=== PATIENT | male | born 1970 | race Caucasian/White ===

== ENCOUNTER 2020-05-02 12:15 | Outpatient (CLI) | payer OTHER, SELFPAY ==
--- NOTE | 2020-05-02 12:23 | CT_ITS ---
WS: [id number] CT ABDOMEN PELVIS TECHNIQUE: Contrast-enhanced CT of the abdomen and pelvis with coronal and sagittal reformatted image s. CLINICAL INFORMATION: EPIGASTRIC PAIN COMPARISON: December 10, 2018 DLP: 1292.[address] scans at [facility] use at least one of these dose optimization techniques: automat ed exposure control; mA and/or kV adjustment per patient size (includes targeted exams where dose is matched to clinical indication); or iterative reconstruction. FINDINGS: Diffuse fatty infiltration of the liver. Cholecystectomy clips. Normal spleen. Normal GE junction. [place] ng bases are well aerated. Normal pancreas. Adrenal glands are normal. Normal renal parenchymal enhan cement. No hydronephrosis. Normal caliber abdominal aorta. Sigmoid diverticulosis. No evidence of acu te diverticulitis. No evidence of small or large bowel obstruction. Normal appendix. No free fluid in the pelvis. No per iaortic lymphadenopathy. No inguinal lymphadenopathy. Small fat-containing left pericentral epigastri c hernia. No herniated bowel. Slight anterolisthesis L5 on S1 with chronic spondylolysis. CT/CT abdomen pelvis w con* [id number] IMPRESSION: IMPRESSION: 1. Diffuse fatty infiltration of the liver. 2. Cholecystectomy clips. 3. Left pericentral epigastric hernia containing omental fat. No herniated bow el. 4. No abdominal or pelvic lymphadenopathy. 5. Stable grade 1 anterolisthesis L5 on S1 with bilateral spondylolysis.
[2020-05-02] MEDS: iohexol 300 mg/mL 100 mL Btl IV (12:53)
[2020-05-02] MEDS: iohexol 300 mg/mL 50 mL Btl PO (12:53)
== END 2020-05-02 12:16 | disposition home or self-care (01) ==
LOC: RADWPI 12:20
PROVIDERS: PCP Family Medicine; Visit Provider Family Medicine
DX: R10.13 Epigastric pain (principal); K76.0 Fatty (change of) liver, not elsewhere classified; K43.9 Ventral hernia without obstruction or gangrene; M47.816 Spondylosis without myelopathy or radiculopathy, lumbar region
CPT/HCPCS: 74177; Q9967

== ENCOUNTER → 2020-09-14 14:46 | Outpatient (BNVA) | payer OTHER, SELFPAY | PROVIDERS: PCP Family Medicine; Visit Provider Internal Medicine | DX: E11.42 Type 2 diabetes mellitus with diabetic polyneuropathy (principal); E11.65 Type 2 diabetes mellitus with hyperglycemia; E78.2 Mixed hyperlipidemia; I10 Essential (primary) hypertension | CPT/HCPCS: 99204 ==

== ENCOUNTER → 2021-01-11 15:36 | Outpatient (BNVA) | payer SELFPAY | PROVIDERS: PCP Family Medicine; Visit Provider Internal Medicine | DX: E11.42 Type 2 diabetes mellitus with diabetic polyneuropathy (principal); E11.65 Type 2 diabetes mellitus with hyperglycemia; E66.9 Obesity, unspecified; E78.2 Mixed hyperlipidemia; I10 Essential (primary) hypertension | CPT/HCPCS: 99215 ==

== ENCOUNTER 2022-01-31 08:26 | Outpatient (CLI) | payer OTHER, SELFPAY ==
[2022-01-31 12:23] LABS: Estmated Average Glucose 169; Hemoglobin A1C 7.5 % (4.0-6.0)
== END 2022-01-31 08:27 | disposition home or self-care (01) ==
LOC: ONCMED 08:26
PROVIDERS: PCP Family Medicine; Visit Provider Internal Medicine
DX: E11.65 Type 2 diabetes mellitus with hyperglycemia (principal); E78.2 Mixed hyperlipidemia; I10 Essential (primary) hypertension; E11.42 Type 2 diabetes mellitus with diabetic polyneuropathy; E66.9 Obesity, unspecified
CPT/HCPCS: 36415; 83036

== ENCOUNTER 2023-01-14 15:25 | Outpatient (CLI) | payer OTHER, SELFPAY ==
--- NOTE | 2023-01-14 15:42 | XRR_ITS ---
PROCEDURE INFORMATION: Exam: XR Left Shoulder Exam date and time: 01/14/2023 3:43 PM Age: 52 years old Clinical indication: Pain and injury or trauma; Fall; Blunt trauma (contusions or hematomas); Left; Injury date: 11/05/2022; Patient HX: Lt shoulder pain, PT fell nov 05, 2022; Additional info: Persistant left shoulder pain S/P trauma 9 wks prior to visi TECHNIQUE: Imaging protocol: Radiologic exam of the left shoulder. Views: 2 or more views. COMPARISON: CR XR chest 2V* [id number] 10/25/2021 9:23 AM FINDINGS: Bones/joints: No fracture or dislocation is seen about the left shoulder. Mild degenerative change of the left AC joint, which appears maintained. Osseous structures show no significant abnormality. No abnormal soft tissue calcification is seen about the shoulder joint. Soft tissues: See Bones/joints finding. XR/XR shoulder LT min 2V* [id number] IMPRESSION: Mild degenerative change left AC joint. No fracture or significant osseous abnormality.
== END 2023-01-14 15:26 | disposition home or self-care (01) ==
PROVIDERS: Visit Provider Family Medicine
DX: M75.112 Incomplete rotator cuff tear or rupture of left shoulder, not specified as traumatic (principal); M25.512 Pain in left shoulder
CPT/HCPCS: 73030

== ENCOUNTER 2023-02-11 06:00 | Outpatient (RCR) | payer OTHER, SELFPAY | END 2023-03-09 23:59 | disposition home or self-care (01) | LOC: SPT 06:00 | PROVIDERS: Visit Provider Family Medicine | DX: M75.112 Incomplete rotator cuff tear or rupture of left shoulder, not specified as traumatic (principal) | CPT/HCPCS: 97110; 97161 ==

== ENCOUNTER 2023-04-23 15:15 | Oncology outpatient (recurring) (ONCR) | payer OTHER, SELFPAY ==
[2023-04-23 15:45] LABS: Alanine Aminotransferase 53 U/L (0-41); Albumin Level 4.5 g/dL (3.5-5.2); Alkaline Phosphatase 100 U/L (40-130); Anion Gap 17.1 (5-19); Aspartate Amino Transferase 49 U/L (0-40); Blood Urea Nitrogen 11 mg/dL (6-20); Calcium 8.8 mg/dL (8.5-10.5); Carbon Dioxide 24 mmol/L (22-29); Chloride 101 mmol/L (98-107); Cholesterol 160 mg/dL (0-200); Globulin 2.8 g/dL (1.3-4.6); Glucose 133 mg/dL (65-115); HDL Cholesterol 47 mg/dL (60-100); Osmolality Calculated 287 mOsm/kg (285-295); Potassium 4.1 mmol/L (3.5-5.1); Sodium 138 mmol/L (136-145); Total Bilirubin 0.7 mg/dL (0.15-1.2); Total Protein 7.3 g/dL (6.6-8.7); Triglycerides 412 mg/dL (0-150)
[2023-04-23 15:58] LABS: Creatinine Urine, Random 352 mg/dL (39-259); Microalbum Creatinine Ratio Ur 3 mg/dL (0-20); Microalbumin Random Urine 1 ug/dL (0-20)
[2023-04-23 16:25] LABS: Estmated Average Glucose 197; Hemoglobin A1C 8.5 % (4.0-6.0)
[2023-04-23 16:45] LABS: LDL Cholesterol Direct 46 mg/dL (0-100)
== END 2023-05-09 23:59 | disposition home or self-care (01) ==
PROVIDERS: Internal Medicine; PCP Family Medicine; Visit Provider Internal Medicine
DX: E11.65 Type 2 diabetes mellitus with hyperglycemia (principal)
CPT/HCPCS: 36415; 80053; 80061; 82044; 83036; 83721

== ENCOUNTER 2023-10-29 08:33 | Outpatient (CLI) | payer OTHER, SELFPAY ==
--- NOTE | 2023-10-29 | ECG_ITS ---
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 Interpretive Statements NAME OF STUDY: Exercise/sestamibi/sestamibi stress test INDICATION: Chest Pain PROCEDURE: The baseline electrocardiogram showed normal sinus rhythm with normal ST-Ts. At the baseline, the patient's blood pressure was 143/84 mm Hg with a heart rate of 81. The patient exercised for 7 minutes and 31 seconds on a standard Spencer protocol. Patient attained a maximum heart rate of 169 beats per minute(100% of the maximum predicted heart rate) with a blood pressure at the peak exercise of 166/91 mm Hg. The EKG at the peak exercise revealed no significant changes. Patient did not have any chest pain or any significant arrhythmis with the exercise Sestamibi was injected 1 minute prior to the peak exercise During the recovery phase, there were no new changes. Blood pressure at the end of the recovery phase was 127/80 mm Hg with a heart rate of 109 per minute. CONCLUSION: 1. No significant EKG changes with the EKG response to [treadmill exercise 2. No exercise-induced chest pain or cardiac arrhythmia 3. Fair exercise tolerance, attained a maximum of 10.2 METs 4. Sestamibi/Sestamibi perfusion results pending; see separate report. Electronically Signed On 11-10-2023 17:02:50 GERMAN TUTOR by Fernanda Ahmadi M.D. [id number]
[2023-10-29 08:38] VITALS: BMI 33.2
--- NOTE | 2023-10-29 08:44 | NMCV_ITS ---
NM jorge perf SPECT r/s* [id number] MahoneyNadeem staley Age: 53 Gender: M : 1970 Exam Date: 10/29/2023 08:44 Ordering Phys: Jesus Locke MD Technologist: CATRACHITO Torrez Exam Location: [facility] Indications: CHEST PAIN STRESS TEST Please see separate stress test report in [facility] for full findings IMAGE PROTOCOL Rest/Stress 1 Exercise Day Radiopharmaceutical Dose (mCi) Administration Site Administered by Rest: Tc-99m 10.9 IV CATRACHITO Forrest Sestamibi Stress:Tc-99m 32.8 IV CATRACHITO Forrest Sestamibi Rest: 29-Oct-2023 60 Discovery 630 Stress: 29-Oct-2023 15 Discovery 630 Radiopharmaceutical was injected at 92 % maximum heart rate. Images obtained in supine and prone position. SPECT RESULTS Technical Quality: Excellent Raw Data Analysis: Normal Image Corrections: No attenuation or motion correction applied Summed Stress Score: 0 Summed Rest Score: 1 Summed Difference Score: 0 PERFUSION FINDINGS A small area of minimally decreased tracer uptake was noted in the basal mid and apical inferior wall region with no significant reversibility FUNCTIONAL RESULTS (calculated via Gated SPECT) Stress Image LV EF (%): 71 Stress EDV (mL):99 TID: 0.88 Stress ESV (mL):29 FUNCTIONAL FINDINGS: Segmental wall motion analysis revealing no gross wall motion abnormalities IMPRESSIONS 1. Myocardial perfusion imaging revealing small area of persistent decreased tracer uptake involving the inferior wall region suggesting myocardial scarring versus attenuation artifact 2. Normal LV ejection fraction of 71% 3. LV wall motion analysis revealing no gross wall motion abnormalities. 4. Normal LV volume Low probability for coronary ischemia, based on the above findings Corrected copy of the report on the study from 10/29/2023 Dr Fernanda Ahmadi MD [facility] (Electronically Signed) Final Date: 30 October 2023 00:11 Amended: 17 November 2023 12:15 C
[2023-10-29 10:47] VITALS: BP 134/78; PULSE 109
== END 2023-10-29 08:34 | disposition home or self-care (01) ==
PROVIDERS: PCP Family Medicine; Visit Provider Family Medicine
DX: R07.9 Chest pain, unspecified (principal)
CPT/HCPCS: 36415; 78452; 93017; A9500

== ENCOUNTER 2024-04-02 14:54 | Outpatient (CLI) | payer OTHER, SELFPAY ==
--- NOTE | 2024-04-02 14:57 | CTR_ITS ---
PROCEDURE INFORMATION: Exam: CT Abdomen And Pelvis With Contrast Exam date and time: 04/02/2024 4:03 PM Age: 53 years old Clinical indication: Abdominal pain; Localized; Left lower quadrant (llq); Prior surgery; Surgery date: 6+ months; Surgery type: Gb; Patient HX: Llq pain; Epigastric pain, HX of ventral hernia TECHNIQUE: Imaging protocol: Computed tomography of the abdomen and pelvis with contrast. Radiation optimization: All CT scans at this facility use at least one of these dose optimization techniques: automated exposure control; mA and/or kV adjustment per patient size (includes targeted exams where dose is matched to clinical indication); or iterative reconstruction. Contrast material: OMNI 350; Contrast volume: 95 ml; Contrast route: INTRAVENOUS (IV); COMPARISON: CT abdomen pelvis w con* [id number] 05/02/2020 12:39 PM RADIATION DOSE METRICS: Total DLP (mGy-cm): 861.13 FINDINGS: Liver: No acute findings Gallbladder and bile ducts: Cholecystectomy. Pancreas: No ductal dilation. Spleen: No splenomegaly. Adrenal glands: No mass. Kidneys and ureters: No stones or hydronephrosis. Stomach and bowel: No obstruction. Mild colonic diverticulosis. Appendix: No evidence of appendicitis. Intraperitoneal space: No free air. No significant fluid collection. Vasculature: No abdominal aortic aneurysm. Lymph nodes: No enlarged lymph nodes. Urinary bladder: Incompletely distended. Reproductive: No acute findings. Bones/joints: No acute findings. Soft tissues: No acute findings. CT/CT abdomen pelvis w con* [id number] IMPRESSION: No acute findings.
[2024-04-02] MEDS: iohexol 350 mg/mL 500 mL Btl (per mL) IV (16:08)
[2024-04-02] MEDS: iohexol 350 mg/mL 500 mL Btl (per mL) PO (16:08)
== END 2024-04-02 14:55 | disposition home or self-care (01) ==
LOC: RAD 14:55
PROVIDERS: PCP Family Medicine; Visit Provider Surgery
DX: R10.32 Left lower quadrant pain (principal); K57.90 Diverticulosis of intestine, part unspecified, without perforation or abscess without bleeding; Z98.890 Other specified postprocedural states
CPT/HCPCS: 74177; Q9967

== ENCOUNTER 2025-08-15 16:22 | Outpatient (CLI) | payer OTHER, SELFPAY | END 2025-08-15 16:23 | disposition home or self-care (01) | LOC: SLEEP 16:26 | PROVIDERS: PCP Family Medicine; Referring Provider Internal Medicine; Visit Provider Internal Medicine Pulmonary Disease | DX: G47.33 Obstructive sleep apnea (adult) (pediatric) (principal) | CPT/HCPCS: G0399 ==